=== PATIENT | female | born 1985 | race Caucasian/White ===

== ENCOUNTER 2018-02-02 05:02 | Inpatient (IN) | payer BC ==
[2018-02-02] MEDS ORDERED: Docusate 100 MG CAP PO PRN (05:08)
[2018-02-02] MEDS ORDERED: Lactated Ringer's 1,000 ML IV SCH (05:08)
[2018-02-02] MEDS ORDERED: CEFAZOLIN/Water 2 GM/20 ML SYRINGE SLOW IVP SCH (05:08)
[2018-02-02] MEDS ORDERED: Ondansetron HCl/PF 4 MG/2 ML Vial IVP PRN ×4 (05:08→10:09)
[2018-02-02] MEDS ORDERED: Promethazine HCl 25 MG/ML VIAL IM PRN ×3 (05:08→08:41)
[2018-02-02] MEDS ORDERED: Bicitra 30 ML UDCUP PO SCH (05:08)
[2018-02-02 05:43] VITALS: BMI 32.5
[2018-02-02 06:11] LABS: Hemoglobin 12.4 g/dL (12.0-16.0); Mean Corpuscular HGB CONC 32.9 g/dL (32.0-36.0); Mean Corpuscular Hemoglobin 28.1 pg (27.0-31.0); Mean Corpuscular Volume 85.5 fL (78.0-98.0); Mean Platelet Volume 7.5 fL (7.4-10.4); Platelet Count 233 thou/uL (130-400); RBC Distribution Width 13.9 % (11.5-14.5); Red Blood Cell (RBC) Count 4.41 mill/uL (4.20-5.40); White Blood Cell (WBC) Count 11.7 thou/uL (4.8-10.8)
[2018-02-02 06:33] LABS: HBSAg Index 0.19 S/CO (0-0.99); Hep B Surf Ag Non-Reactive S/CO (NonReactive); Syphilis Antibody Nonreactive (Nonreactive); Syphilis Antibody Index 0.03 S/CO (<1.00 Non-Reactive)
[2018-02-02] MEDS ORDERED: Bupivacaine 0.75% W/DEXTROSE 8.25% 2 ML AMP ONE (06:56)
[2018-02-02] MEDS ORDERED: Ondansetron HCl/PF 4 MG/2 ML Vial ONE ×2 (06:56→14:23)
[2018-02-02] MEDS ORDERED: Oxytocin 10 UNITS/ML VIAL ONE (06:56)
[2018-02-02] MEDS ORDERED: Morphine PF 1 MG/ML SYR ONE (06:56)
[2018-02-02] MEDS ORDERED: Lidocaine 1% PF 5 ML VIAL ONE (07:17)
[2018-02-02] MEDS ORDERED: ePHEDrine/0.9% NaCl/PF SYRINGE 50 mg/10 ml ONE ×2 (08:28→14:23)
[2018-02-02] MEDS ORDERED: Eucerin (Mineral Oil/Petrolatum,White) 30 gm Jar TOP PRN (08:41)
[2018-02-02] MEDS ORDERED: diphenhydrAMINE 50 MG/ML VIAL IVP PRN (08:41)
[2018-02-02] MEDS ORDERED: Promethazine HCl 25 MG SUPP PR PRN (08:41)
[2018-02-02] MEDS ORDERED: Naloxone HCl 0.4 mg/ml Vial IV PRN (08:41)
[2018-02-02] MEDS ORDERED: Naloxone HCl 0.4 mg/ml Vial IVP PRN ×2 (08:41)
[2018-02-02] MEDS ORDERED: Promethazine HCl 25 MG/ML VIAL SLOW IVP PRN (08:41)
[2018-02-02] MEDS ORDERED: Communication Order-Pharmacy FS SCH (08:45)
[2018-02-02] MEDS: Ketorolac Tromethamine 30 MG/ML VIAL IVP PRN ×2 (09:56→18:18)
[2018-02-02] MEDS ORDERED: Acetaminophen 325 MG TAB PO PRN (10:09)
[2018-02-02] MEDS ORDERED: Lanolin Ointment 7 GM TUBE TOP PRN (10:09)
[2018-02-02] MEDS ORDERED: diphenhydrAMINE 25 MG CAP PO PRN (10:09)
[2018-02-02] MEDS ORDERED: Zolpidem Tartrate 5 MG TAB PO PRN (10:09)
[2018-02-02] MEDS ORDERED: Adacel (T-DAP) 0.5 ML VIAL IM ONE (10:09)
[2018-02-02] MEDS ORDERED: Bisacodyl 10 MG SUPP PR PRN (10:09)
[2018-02-02] MEDS ORDERED: NS / Oxytocin 40 units/1000ml 1,000 ML IV SCH (10:15)
[2018-02-02] MEDS: Ferrous Sulfate 325 MG TAB PO SCH (16:47)
[2018-02-02] MEDS ORDERED: Acetaminophen/Codeine 30-300mg Tablet PO PRN (20:46)
[2018-02-02] MEDS ORDERED: Meperidine HCl/PF 25 MG/ML VIAL IM PRN (20:46)
[2018-02-02] MEDS: Docusate Calcium (SURFAK) 240 MG CAP PO SCH (23:54)
[2018-02-03] MEDS: Ketorolac Tromethamine 30 MG/ML VIAL IVP PRN (01:20)
[2018-02-03 05:18] LABS: Hemoglobin 10.3 g/dL (12.0-16.0); Mean Corpuscular HGB CONC 33.6 g/dL (32.0-36.0); Mean Corpuscular Volume 86.3 fL (78.0-98.0); Mean Platelet Volume 7.3 fL (7.4-10.4); Platelet Count 177 thou/uL (130-400); Red Blood Cell (RBC) Count 3.57 mill/uL (4.20-5.40); White Blood Cell (WBC) Count 11.6 thou/uL (4.8-10.8)
[2018-02-03] MEDS: Ferrous Sulfate 325 MG TAB PO SCH ×2 (08:32→10:07)
[2018-02-03] MEDS: Docusate Calcium (SURFAK) 240 MG CAP PO SCH ×2 (08:33→21:00)
[2018-02-03] MEDS: Acetaminophen/Codeine 30-300mg Tablet PO PRN ×2 (08:34→09:41)
[2018-02-03] MEDS: Prenatal Vitamin 1 TAB PO SCH (08:34)
[2018-02-03] MEDS: Simethicone Chewable 80 MG TAB PO PRN ×2 (12:32→21:00)
[2018-02-03] MEDS: HYDROcodone/Acetaminophen 7.5/325 mg Tablet PO PRN ×3 (12:32→21:00)
[2018-02-03] MEDS: Ibuprofen 800 MG TAB PO SCH ×2 (14:03→21:00)
[2018-02-04] MEDS: HYDROcodone/Acetaminophen 7.5/325 mg Tablet PO PRN ×3 (04:20→14:05)
[2018-02-04] MEDS: Ibuprofen 800 MG TAB PO SCH ×2 (04:21→14:05)
[2018-02-04] MEDS: Ferrous Sulfate 325 MG TAB PO SCH (07:25)
[2018-02-04 07:55] VITALS: BP 109/58; TEMP 98.3
[2018-02-04] MEDS: Prenatal Vitamin 1 TAB PO SCH (09:20)
[2018-02-04] MEDS: Docusate Calcium (SURFAK) 240 MG CAP PO SCH (09:20)
== END 2018-02-04 15:40 | disposition home or self-care (01) | DRG 765 ==
LOC: L&D 05:02 → 3SW 10:50
PROVIDERS: ADMIT Obstetrics & Gynecology; ATTEND Obstetrics & Gynecology
PROC: 10D00Z1 Extraction of Products of Conception, Low, Open Approach (ICD-10-PCS; principal; 2018-02-02)
DX: O34.211 Maternal care for low transverse scar from previous cesarean delivery (principal); O44.43 Low lying placenta NOS or without hemorrhage, third trimester; Z37.0 Single live birth; O99.344 Other mental disorders complicating childbirth; F41.9 Anxiety disorder, unspecified; Z3A.39 39 weeks gestation of pregnancy; N85.8 Other specified noninflammatory disorders of uterus; N20.0 Calculus of kidney; F32.9 Major depressive disorder, single episode, unspecified
CPT/HCPCS: 36415; 51702; 85027; 86780; 86850; 86900; 86901; 87340; J1885; J2001; J2274; J2405; J2590; J3490